=== PATIENT | male | born 1960 | race Caucasian/White ===

== ENCOUNTER 2022-06-02 12:29 | Inpatient (IN) | payer OTHER ==
[~2022-06-02] VITALS: Ht 177.8 cm; Wt 129.4 kg
[2022-06-02 13:52] LABS: BASOPHILS ABSOLUTE AUTO 0.08 K/mm3 (0.00-0.23); BASOPHILS PERCENT AUTO 1 % (0-2); EOSINOPHILS PERCENT AUTO 0 % (0-6); Hematocrit 49.7 % (37.0-53.0); Hemoglobin 16.5 g/dL (13.5-17.5); IMMATURE GRAN ABSOLUTE AUTO 0.07 K/mm3 (0.00-0.10); IMMATURE GRAN PERCENT AUTO 1 % (0-1); LYMPHOCYTES ABSOLUTE AUTO 2.98 K/mm3 (0.84-5.20); LYMPHOCYTES PERCENT AUTO 33 % (21-46); MONOCYTES ABSOLUTE AUTO 0.72 K/mm3 (0.16-1.47); MONOCYTES PERCENT AUTO 8 % (4-13); Mean Corpuscular HGB 30.8 pg (26.0-34.0); Mean Corpuscular HGB Conc 33.2 g/dL (31.5-36.5); Mean Corpuscular Volume 93 fL (80-100); Mean Platelet Volume 9.3 fL (9.1-12.4); NEUTROPHILS ABSOLUTE AUTO 5.07 K/mm3 (1.96-9.15); NEUTROPHILS PERCENT AUTO 57 % (41-73); Platelet Count 279 K/mm3 (150-400); RDW Coefficient Variation 13.5 % (11.7-14.2); RDW Standard Deviation 46.4 fL (35.1-46.3); Red Blood Cell Count 5.35 M/mm3 (4.30-5.90); White Blood Cell Count 8.92 K/mm3 (4.00-11.30)
[2022-06-02 14:11] LABS: Albumin, Blood 3.9 g/dL (3.4-5.0); Albumin/Globulin Ratio 1.1 (0.8-1.8); Bilirubin, Total 0.8 mg/dL (0.1-1.0); Bun/Creatinine Ratio 18.6 (12.0-20.0); Calcium, Blood 9.6 mg/dL (8.5-10.1); Creatinine, Blood 0.92 mg/dL (0.60-1.20); Globulin, Blood 3.7 g/dL (2.2-4.0); Potassium, Blood 4.9 mmol/L (3.5-5.5); Total Protein, Blood 7.6 g/dL (6.4-8.2)
[2022-06-02] MEDS ORDERED: LISI20 (15:22)
[2022-06-02] MEDS ORDERED: GABA300 PO ×2 (15:39→23:59)
[2022-06-02] MEDS ORDERED: ATOR20 PO (15:39)
[2022-06-02] MEDS ORDERED: METO25ER PO (15:39)
[2022-06-02] MEDS ORDERED: ASPI81CH PO (15:39)
[2022-06-02] MEDS ORDERED: Lisinopril-Hct1 EAC4 PO (15:39)
[2022-06-02] MEDS ORDERED: [UNRECOGNIZED DRUG - OTHER] PO (15:40)
[2022-06-02] MEDS ORDERED: Norvasc10 MG PO (15:40)
[2022-06-02] MEDS ORDERED: METFORMIN ER1000 M2 PO (15:41)
[2022-06-02] MEDS ORDERED: CLOP75 PO (15:41)
[2022-06-02] MEDS ORDERED: INSULANI (15:41)
[2022-06-02] MEDS ORDERED: Preservision S1 EACH PO (15:41)
[2022-06-02] MEDS ORDERED: NOVOLOG FL100 UNIT/2 SC (15:42)
[2022-06-02] MEDS ORDERED: ARNUITY ELLIPT50 MCG IH (15:42)
[2022-06-02] MEDS ORDERED: PIOG30 PO (15:43)
[2022-06-02 22:09] VITALS: BP 131/66
[2022-06-03] VITALS (16 sets, daily range): BP systolic 94–156; BP diastolic 51–75
--- NOTE | 2022-06-03 08:13 | NUR ---
ADMITTED THIS SHIFT FOR DX INC [facility].PT AMBULATORY. NO C/O NAUSEA. DENIED NEED FOR PAIN MEDS.NPO PENDING X WITH SURGERY. ER REPORTED SURGERY AWARE PER ER DOCTOR.
--- NOTE | 2022-06-03 10:26 | NUR ---
PT AWAKE DURING SHIFT REPORT, RESTING QUIETLY, WAITING FOR SX CONSULT. PT TO ER YESTERDAY WITH C/O R GROIN PAIN. NPO AFTER MN; AM MEDS GIVEN PER ASHLYN MILLER. PER REPORT, ER DOC SPOKE WITH SX,BUT UNCLEAR IF SAME SX ORTHO/PROSTHETIC AIDE TODAY. DR BOWLING'S OFFICE NOTIFIED OF CONSULT @ 0900; OFFICE TO GET MESSAGE TO DR BOWLING. PT UP INDEPENDENTLY IN AND TO [facility]. DECLINED NEEDING PAIN MEDICATION TO PRESENT. REPORT GIVEN TO LAVERNE MILLER.
--- NOTE | 2022-06-03 12:32 | NUR ---
IV STARTED BY REYES. EXTENTION TUBING PROVIDED.
--- NOTE | 2022-06-03 13:25 | NUR ---
MORNING SUMMARY ASSUMED CARE OF PATIENT FROM RIGOBERTO MCALLISTER RN AT 1000. ALERT AND ORIENTED, INDEPENDENT IN ROOM. SPOUSE A BEDSIDE. REPORTING 3/10 PAIN TO RIGHT GROIN. NPO, VOIDING WELL. BLOOD CONSENT COMPLETED. EKG COMPLETED. ONE ATTEMPT TO PLACE 18G IV IN LEFT ARM UNSUCCESSFUL, PATIENT BECAME DIAPHORETIC AND NAUSEATED. Q6 HOUR BLOOD GLUCOSE CHECK AT 104. PATIENT LEFT UNIT FOR PREOP ON [facility] AT 1200.
--- NOTE | 2022-06-03 19:49 | NUR ---
SHIFT SUMMARY ALERT AND ORIENTED AND INDEPENDENT PREOP. RETURNED FROM PACU AT 1830. ABD LAP SITES X5 C/D/I WITH DERMABOND. ALERT AND ORIENTED. POST OP VSS. TOLERATING JELLO AND WATER. LR RUNNING AT 75/HR. REPORTED PAIN BEGINNING TO INCREASE IN ABD. REPORT GIVEN TO STORAGE MANAGER RN.
[2022-06-04 00:01] VITALS: BP 120/61
[2022-06-04 03:50] VITALS: BP 130/63
[2022-06-04 04:32] LABS: Hematocrit 43.9 % (37.0-53.0); Hemoglobin 14.6 g/dL (13.5-17.5); Mean Corpuscular HGB Conc 33.3 g/dL (31.5-36.5); Mean Corpuscular Volume 93 fL (80-100); Mean Platelet Volume 9.6 fL (9.1-12.4); Platelet Count 267 K/mm3 (150-400); RDW Coefficient Variation 13.4 % (11.7-14.2); RDW Standard Deviation 45.8 fL (35.1-46.3); Red Blood Cell Count 4.71 M/mm3 (4.30-5.90); White Blood Cell Count 9.85 K/mm3 (4.00-11.30)
--- NOTE | 2022-06-04 04:48 | NUR ---
SHIFT SUMMARY PT A&OX4, AND COOPERATIVE WITH CARE. NO ACUTE CHANGES. MEDICATED TWICE FOR PAIN. INDEPENDENT IN ROOM. CONT BIOX AT BEDSIDE, CPAP WHILE SLEEPING. HR HAS BEEN CADEN, BUT PT STATES THAT'S NORMAL. X5 LAP SITES C/D/I. CALLS APPROPRIATELY, CALL LIGHT WITHIN REACH.
[2022-06-04 04:54] LABS: Albumin, Blood 3.1 g/dL (3.4-5.0); Bilirubin, Total 0.7 mg/dL (0.1-1.0); Bun/Creatinine Ratio 24.3 (12.0-20.0); Calcium, Blood 8.8 mg/dL (8.5-10.1); Creatinine, Blood 1.03 mg/dL (0.60-1.20); Potassium, Blood 4.6 mmol/L (3.5-5.5); Total Protein, Blood 6.1 g/dL (6.4-8.2)
[2022-06-04 07:16] VITALS: BP 159/75
[2022-06-04] MEDS ORDERED: Percocet 5-3251 EACH PO (10:17)
--- NOTE | 2022-06-04 10:59 | NUR ---
DISCHARGE SUMMARY ALERT AND ORIENTED. INDEPENDENT IN ROOM. ABD LAP SITES X5 WNL, ANYI, C/D/I. TOLERATING ADA DIET AND LIQUIDS. VOIDING WELL. POST OP VSS. DISCHARGE ORDER GIVEN BY DR VILLASEÑOR. DISCHARGE EDUCATION GIVEN ON NEW RXS, INCISION CARE, DIET, ACTIVITY, AND FOLLOW UP WITH SURGERY. IV'S DC'D WNL. PATIENT LEFT UNIT AT 1045 VIA WHEELCHAIR FOR HOME WITH SPOUSE.
== END 2022-06-04 11:01 | disposition home or self-care (01) | DRG 352 ==
LOC: ER 12:29 → SURS 18:37
PROVIDERS: Internal Medicine; Student in an Organized Health Care Education/Training Program; Surgery; ADMIT Internal Medicine
PROC: 0YU54JZ Supplement Right Inguinal Region with Synthetic Substitute, Percutaneous Endoscopic Approach (ICD-10-PCS; principal; 2022-06-03 14:30)
PROC: 8E0W4CZ Robotic Assisted Procedure of Trunk Region, Percutaneous Endoscopic Approach (ICD-10-PCS; 2022-06-03 14:30)
DX: K40.30 Unilateral inguinal hernia, with obstruction, without gangrene, not specified as recurrent (principal); I10 Essential (primary) hypertension; E78.5 Hyperlipidemia, unspecified; G89.29 Other chronic pain; I25.10 Atherosclerotic heart disease of native coronary artery without angina pectoris; G47.33 Obstructive sleep apnea (adult) (pediatric); E11.40 Type 2 diabetes mellitus with diabetic neuropathy, unspecified; K80.20 Calculus of gallbladder without cholecystitis without obstruction; E66.01 Morbid (severe) obesity due to excess calories; Z68.38 Body mass index [BMI] 38.0-38.9, adult; Z87.891 Personal history of nicotine dependence; Z95.1 Presence of aortocoronary bypass graft; Z79.4 Long term (current) use of insulin; Z79.02 Long term (current) use of antithrombotics/antiplatelets; Z79.899 Other long term (current) drug therapy
CPT/HCPCS: 36415; 74177; 80053; 82947; 85025; 85027; 88304; 93005; 93010; 94660; 94760; 94762; 96374-59; 96375; 96376; 99284-25; A9270; C1781; J0690; J1100; J1170; J1815; J1885; J2370; J2405; J2704; J2795; J3010; J7120; Q9967